=== PATIENT | female | born 1985 | race American Indian/Alaskan Native ===

== ENCOUNTER 2016-10-19 15:41 | Emergency (ER) | payer BC, OTHER ==
[2016-10-19] MEDS ORDERED: Sodium Chloride 0.9% 1,000 ML IV STA (16:00)
--- NOTE | 2016-10-19 16:04 | ED PDOC ---
Arrival/HPI - General Chief Complaint: Abdominal Pain Time Seen by Provider: 10/19/16 15:51 Historian: Patient - History of Present Illness Narrative History of Present Illness (Text): 10/19/16 16:00 A 31 year old female whose past medical history includes, hypertension, depression, and sciatica, presents to the emergency department with suprapubic abdominal pain. She states that she has been experiencing abdominal pain, vomiting, and nausea She states that she took TUMS and Prilosec, but they did not alleviate her discomfort. She denies fevers, chills, diarrhea, headache, dizziness, headache, cough, chest pain, shortness of breath, dysuria, hematuria or any other complaint. PMD: Dr. Harper Time/Duration: Other (Yesterday) Symptom Onset: Sudden Symptom Course: Unchanged Activities at Onset: Rest, Light Context: Home Past Medical History - Provider Review Nursing Documentation Reviewed: Yes - Infectious Disease Hx of Infectious Diseases: None - Cardiac Hx Hypertension: Yes - Musculoskeletal/Rheumatological Other/Comment: Sciatica - Gastrointestinal Other/Comment: Iris 2014 - Psychiatric Hx Anxiety: Yes Hx Depression: Yes Hx Substance Use: No - Surgical History Hx Section: Yes (x1) Family/Social History - Physician Review Nursing Documentation Reviewed: Yes Family/Social History: No Known Family HX Smoking Status: Never Smoked Hx Alcohol Use: No Hx Substance Use: No Allergies/Home Meds Allergies/Adverse Reactions: Allergies zpack Allergy (Uncoded 10/19/16 15:54) VOMITING Home Medications: Home Meds Medication Instructions Recorded Confirmed Alprazolam [Xanax] 0.5 mg PO PRN PRN 10/19/16 10/19/16 DULoxetine [Cymbalta] 60 mg PO DAILY 10/19/16 10/19/16 Norethindrone-E.estradiol-Iron [Lo 1 tab PO DAILY 10/19/16 10/19/16 Loestrin Fe 1-10 Tablet] hydroCHLOROthiazide [Hydrodiuril] 25 mg PO DAILY 10/19/16 10/19/16 Review of Systems - Physician Review All systems were reviewed & negative as marked: Yes - Review of Systems Constitutional: absent: Fevers, Night Sweats Respiratory: absent: SOB, Cough Cardiovascular: absent: Chest Pain Gastrointestinal: Abdominal Pain (suprapubic abdominal pain), Nausea, Vomiting. absent: Diarrhea Genitourinary Female: absent: Dysuria, Hematuria Neurological: absent: Headache, Dizziness Physical Exam Vital Signs Reviewed: Yes Vital Signs Temp Pulse Resp BP Pulse Ox 10/19/16 19:00 98.4 F 71 18 143/77 100 10/19/16 17:25 98.2 F 98 H 18 135/89 99 10/19/16 16:52 98.6 F 10/19/16 15:50 98.4 F 106 H 16 137/91 H 100 Temperature: Afebrile Blood Pressure: Hypertensive Pulse: Tachycardic Respiratory Rate: Normal Appearance: Positive for: Well-Appearing, Non-Toxic, Comfortable Pain Distress: None Mental Status: Positive for: Alert and Oriented X 3 - Systems Exam Head: Present: Atraumatic, Normocephalic Pupils: Present: PERRL Extroacular Muscles: Present: EOMI Conjunctiva: Present: Normal Mouth: Present: Moist Mucous Membranes Neck: Present: Normal Range of Motion Respiratory/Chest: Present: Clear to Auscultation, Good Air Exchange. No: Respiratory Distress, Accessory Muscle Use Cardiovascular: Present: Regular Rate and Rhythm, Normal S1, S2. No: Murmurs Abdomen: Present: Tenderness (suprapubic tenderness) Back: Present: Normal Inspection Upper Extremity: Present: Normal Inspection. No: Cyanosis, Edema Lower Extremity: Present: Normal Inspection. No: Edema Neurological: Present: GCS=15, CN II-XII Intact, Speech Normal Skin: Present: Warm, Dry, Normal Color. No: Rashes Psychiatric: Present: Alert, Oriented x 3, Normal Insight, Normal Concentration Medical Decision Making ED Course and Treatment: 10/19/16 16:07 Impression: A 31 year old female with suprapubic abdominal pain with associated nausea and vomiting. Plan: -- Labs -- IV Fluids, Tylenol, Zofran -- Urinalysis -- Reassess and disposition Progress Notes: CT Abdomen and Pelvis with contrast: Creator : Marisa Mark MD FINDINGS: LOWER THORAX: No visible consolidation, pleural effusion, or pneumothorax. LIVER: Indeterminate vague hypodense region measuring approximately 2.9 x 2.8 cm within the right hepatic lobe adjacent to the falciform ligament, possibly focal fatty infiltration. GALLBLADDER AND BILE DUCTS:Unremarkable. PANCREAS:Unremarkable. SPLEEN:Unremarkable. ADRENALS:Unremarkable. KIDNEYS AND URETERS: The kidneys enhance symmetrically. No hydronephrosis or obstructing calculus identified. VASCULATURE:No aortic aneurysm. BOWEL:Gastric lap band. Stomach is nondistended. Lack of oral contrast limits evaluation for bowel pathology. Bowel loops appear within normal limits of caliber without evidence of obstruction. APPENDIX:The appendix appears within normal limits of caliber. No secondary signs of acute appendicitis. PERITONEUM:Small pelvic free fluid. No definite free air. LYMPH NODES:No bulky adenopathy identified. BLADDER:Under distended urinary bladder appears otherwise grossly unremarkable. REPRODUCTIVE:Uterus is present. BONES:Degenerative changes. Vacuum disc phenomena at L5-S1. OTHER FINDINGS:6 mm fat containing umbilical hernia. IMPRESSION: Indeterminate vague hypodense region measuring approximately 2.9 x 2.8 cm within the right hepatic lobe adjacent to the falciform ligament, possibly focal fatty infiltration. Dedicated cross-sectional imaging of the liver may be considered for further characterization if indicated. Gastric lap band. Small pelvic free fluid. 10/19/16 19:37 p treaseessed: pt notified of ct findings. advise outpt f/u. us shows possible rutupured cyst. pt now state pain resolved. stable for d/c. advise outpt fu. return precautions - Lab Interpretations Lab Results: 10/19/16 16:10 10/19/16 16:10 Lab Results 10/19/16 16:40: Urine Color Yellow, Urine Appearance Clear, Urine pH 7.5, Ur Specific [place] 1.020, Urine Protein Negative, Urine Glucose (UA) Negative, Urine Ketones Negative, Urine Blood Trace-lysed H, Urine Nitrate Negative, Urine Bilirubin Negative, Urine Urobilinogen 0.2, Ur Leukocyte Esterase Negative , Urine RBC 0 - 2, Urine WBC 0 - 2, Urine HCG, Qual Negative 10/19/16 16:10: Sodium 138, Potassium 3.0 L, Chloride 94 L, Carbon Dioxide 33, Anion Gap 14, BUN 7, Creatinine 0.8, Est GFR ( Amer) > 60, Est GFR (Non- Af Amer) > 60, Random Glucose 93, Calcium 9.3, Total Bilirubin 0.5, AST 34, ALT 28, Alkaline Phosphatase 102, Total Protein 7.8, Albumin 4.2, Globulin 3.5, Albumin/Globulin Ratio 1.2, Lipase 69 10/19/16 16:10: PT 10.0, INR 0.93, APTT 30.9 H 10/19/16 16:10: WBC 7.1, RBC 4.23, Hgb 12.5, Hct 37.0, MCV 87.5, MCH 29.6, MCHC 33.8, RDW 13.9, Plt Count 311, MPV 10.0, Gran % 64.1, Lymph % (Auto) 27.6, [place] % (Auto) 7.1 H, Eos % (Auto) 1.1 L, Baso % (Auto) 0.1, Gran # 4.54, Lymph # 2.0 , [place] # 0.5, Eos # 0.1, Baso # 0.01 I have reviewed the lab results: Yes - RAD Interpretation Radiology Orders: 10/19/16 16:52 ABD & PELVIS IV CONTRAST ONLY [CT] Stat 10/19/16 17:39 TRANSVAGINAL [US] Stat - Medication Orders Current Medication Orders: Discontinued Medications Acetaminophen (Tylenol 325mg Tab) 975 mg PO STAT STA Stop: 10/19/16 16:01 Last Admin: 10/19/16 16:52 Dose: 975 mg Sodium Chloride (Sodium Chloride 0.9%) 1,000 mls @ 1,000 mls/hr IV .Q1H STA Stop: 10/19/16 16:59 Last Admin: 10/19/16 16:19 Dose: 1,000 mls/hr Iohexol (Omnipaque 350 100 Ml) Confirm Administered Dose 350 mg .ROUTE .STK-MED ONE Stop: 10/19/16 16:58 Ketorolac Tromethamine (Toradol) 30 mg IVP STAT STA Stop: 10/19/16 17:40 Last Admin: 10/19/16 17:50 Dose: 30 mg Ondansetron HCl (Zofran Inj) 4 mg IVP STAT STA Stop: 10/19/16 16:01 Last Admin: 10/19/16 16:54 Dose: 4 mg Potassium Chloride (K-Dur 20 Meq Er Tab) 40 meq PO STAT STA Stop: 10/19/16 16:55 Last Admin: 10/19/16 17:19 Dose: 40 meq - Scribe Statement The provider has reviewed the documentation as recorded by the Israel Dumont Provider Scribe Attestation: All medical record entries made by the Scribe were at my direction and personally dictated by me. I have reviewed the chart and agree that the record accurately reflects my personal performance of the history, physical exam, medical decision making, and the department course for this patient. I have also personally directed, reviewed, and agree with the discharge instructions and disposition. Disposition/Present on Arrival - Present on Arrival Any Indicators Present on Arrival: No History of DVT/PE: No History of Uncontrolled Diabetes: No Urinary Catheter: No History of Decub. Ulcer: No History Surgical Site Infection Following: None - Disposition Have Diagnosis and Disposition been Completed?: Yes Diagnosis: Abdominal pain Disposition: HOME/ ROUTINE Disposition Time: 19:38 Patient Problems: Current Active Problems Problem Status Onset Abdominal pain Acute Condition: STABLE Discharge Instructions (ExitCare): Ovarian Cyst (ED), Acute Abdominal Pain (ED) , Hypokalemia (ED) Additional Instructions: please discuss your ct findings with the specialist. return to er with worsening symptoms or concerns. Prescriptions: Naproxen 500 mg PO BID PRN #14 tab PRN Reason: Pain, Mild (1-3) Referrals: [facility] [Outside] - Follow up with primary [facility] [place] [Outside] - Follow up with primary [facility] [Outside] - Follow up with primary [facility] [Outside] - Follow up with primary [facility] Yennifer Alejo, [Primary Care Provider] - Follow up with primary Jer Ornelas MD [Staff Provider] - Follow up with primary Todd Lala [Medical Doctor] - Follow up with primary Forms: [facility] ([place])
[2016-10-19 16:29] LABS: BASO # 0.01 K/mm3 (0.0-2.0); BASO % 0.1 % (0.0-3.0); EOS # 0.1 (0.0-0.7); EOS % 1.1 % (1.5-5.0); GRAN # 4.54 (1.4-6.5); GRAN % 64.1 % (50.0-68.0); LYMPH % 27.6 % (22.0-35.0); MEAN CELL VOLUME 87.5 fl (80.0-105.0); MEAN CORPUSCULAR HEMOGLOBIN 29.6 pg (25.0-35.0); MEAN CORPUSCULAR HGB CONC 33.8 g/dl (31.0-37.0); MONO # 0.5 (0.1-0.6); MONO % 7.1 % (1.0-6.0); RED CELL DISTRIBUTION WIDTH 13.9 % (11.5-14.5); WHITE BLOOD COUNT 7.1 10^3/ul (4.5-11.0)
[2016-10-19 16:35] LABS: INR 0.93 (0.93-1.08); PARTIAL THROMBOPLASTIN TIME 30.9 Seconds (23.7-30.8)
[2016-10-19 16:40] LABS: ALB/GLOB RATIO 1.2 (1.1-1.8); ALKALINE PHOSPHATASE 102 U/L (38-133); ALT/SGPT 28 U/L (7-56); AST/SGOT 34 U/L (15-39); BILIRUBIN,TOTAL 0.5 mg/dL (0.2-1.3); BLOOD UREA NITROGEN 7 mg/dL (7-21); CALCIUM 9.3 mg/dL (8.4-10.5); CARBON DIOXIDE 33 mmol/L (21-33); CHLORIDE 94 mmol/L (98-107); GFR AFRICAN-AMERICAN > 60; GLUCOSE,RANDOM 93 mg/dL (70-110); LIPASE 69 U/L (23-300); SODIUM 138 mmol/L (132-148); TOTAL PROTEIN 7.8 g/dL (5.8-8.3)
[2016-10-19 16:50] LABS: PH,URINE 7.5 (4.7-8.0); URINE BILIRUBIN NEGATIVE (NEGATIVE); URINE BLOOD TRACE-LYSED (NEGATIVE); URINE GLUCOSE (UA) NEGATIVE (NEGATIVE); URINE KETONE NEGATIVE (NEGATIVE); URINE LEUKOCYTE ESTERASE NEGATIVE Leu/uL (NEGATIVE); URINE PROTEIN NEGATIVE mg/dL (<30 mg/dL); URINE UROBILINOGEN 0.2 E.U./dL (<1 E.U./dL)
[2016-10-19 16:51] LABS: URINE APPEARANCE CLEAR (CLEAR); URINE COLOR YELLOW (YELLOW)
[2016-10-19] MEDS ORDERED: Potassium Chloride 20 mEq ER Tab PO STA (16:54)
[2016-10-19] MEDS ORDERED: Iohexol 350 MG/100 ML VIAL ONE (16:57)
[2016-10-19 17:05] LABS: URINE RBC 0 - 2 /hpf (0-2); URINE WBC 0 - 2 /hpf (0-6)
--- NOTE | 2016-10-19 17:24 | CT ---
PROCEDURE: CT Abdomen and Pelvis with contrast HISTORY: lower abd pain COMPARISON: None available. TECHNIQUE: Contrast dose: 100 mL Omnipaque 350 Radiation dose: Total exam DLP = 698.75 mGy-cm. This CT exam was performed using one or more of the following dose reduction techniques: Automated exposure control, adjustment of the mA and/or kV according to patient size, and/or use of iterative reconstruction technique. FINDINGS: LOWER THORAX: No visible consolidation, pleural effusion, or pneumothorax. LIVER: Indeterminate vague hypodense region measuring approximately 2.9 x 2.8 cm within the right hepatic lobe adjacent to the falciform ligament, possibly focal fatty infiltration. GALLBLADDER AND BILE DUCTS: Unremarkable. PANCREAS: Unremarkable. SPLEEN: Unremarkable. ADRENALS: Unremarkable. KIDNEYS AND URETERS: The kidneys enhance symmetrically. No hydronephrosis or obstructing calculus identified. VASCULATURE: No aortic aneurysm. BOWEL: Gastric lap band. Stomach is nondistended. Lack of oral contrast limits evaluation for bowel pathology. Bowel loops appear within normal limits of caliber without evidence of obstruction. APPENDIX: The appendix appears within normal limits of caliber. No secondary signs of acute appendicitis. PERITONEUM: Small pelvic free fluid. No definite free air. LYMPH NODES: No bulky adenopathy identified. BLADDER: Under distended urinary bladder appears otherwise grossly unremarkable. REPRODUCTIVE: Uterus is present. BONES: Degenerative changes. Vacuum disc phenomena at L5-S1. OTHER FINDINGS: 6 mm fat containing umbilical hernia. IMPRESSION: Indeterminate vague hypodense region measuring approximately 2.9 x 2.8 cm within the right hepatic lobe adjacent to the falciform ligament, possibly focal fatty infiltration. Dedicated cross-sectional imaging of the liver may be considered for further characterization if indicated. Gastric lap band. Small pelvic free fluid.
[2016-10-19 17:26] VITALS: RESP 18
[2016-10-19 19:07] VITALS: O2SAT 100
[2016-10-19 20:39] VITALS: BP 147/74; PULSE 68; TEMP 98.5
--- NOTE | 2016-10-20 08:40 | US ---
HISTORY: pelvic pain COMPARISON: And pelvis CT with contrast 10/19/2016 TECHNIQUE: Transvaginal sonography of the pelvis was performed as well as supplementary and trans abdominal ultrasonography. FINDINGS: UTERUS: Measures 7.0 x 4.2 x 5.0 cm. Uterus is mildly enlarged with heterogeneous echotexture seen throughout the myometrium without focal mass or cyst related. ENDOMETRIUM: Measures 3.5 mm in diameter. Unremarkable. CERVIX: No cervical abnormality identified. RIGHT OVARY: Measures 2.3 x 2.4 x 2.6 cm. No solid mass. Normal flow. LEFT OVARY: Measures 2.4 x 1.4 x 2.1 cm. No solid mass. Normal flow. FREE FLUID: A minimal amount of fluid is seen the cul-de-sac which is felt be physiologic. OTHER FINDINGS: None. IMPRESSION: No suspicious findings seen related to the uterus or either ovary. Myometrium is inhomogeneous in overall echotexture but is nonfocal. Limited fluid seen the cul-de-sac which is nonspecific but may be physiologic. Alternatively, consider possible ovarian cyst rupture and other etiologies. Concur with preliminary report generated by [facility] 10/19/2016.
== END 2016-10-19 20:36 | disposition home or self-care (01) ==
LOC: ED 15:41
DX: R10.9 Unspecified abdominal pain (principal); I10 Essential (primary) hypertension; Z98.84 Bariatric surgery status
CPT/HCPCS: 74177; 76830; 80053; 81001; 83690; 84703; 85025; 85610; 85730; 96361; 96374; 96375; 99284; J1885; J2405; J7040; Q9967